=== PATIENT | male | born 1945 | race Caucasian/White ===

== ENCOUNTER 2020-08-19 02:01 | Outpatient (CLI) | payer MEDICARE, OTHER, SELFPAY ==
[2020-08-19 19:10] LABS: SARS-CoV-2 RNA PCR Negative
== END 2020-08-19 02:02 | disposition home or self-care (01) ==
LOC: ANHCOVIDDT 02:02
PROVIDERS: PCP Internal Medicine; Visit Provider Orthopaedic Surgery
DX: Z01.812 Encounter for preprocedural laboratory examination (principal); Z20.828 Contact with and (suspected) exposure to other viral communicable diseases
CPT/HCPCS: 87635; C9803; U0003

== ENCOUNTER 2020-08-22 00:58 | Day surgery (SDC) | payer MEDICARE, OTHER, SELFPAY ==
[2020-08-17 18:02] VITALS: BMI 27.8
--- NOTE | 2020-08-22 07:05 | WPDHPUPDATE1 ---
History and Physical Update Update Date/Time: 08/22/20 07:05 History and Physical has been reviewed, including an updated exam of the patient. There are NO changes in the patient's condition. Risks, benefits, and alternatives have been discussed and questions answered. Patient agrees to proceed with procedure.
--- NOTE | 2020-08-22 07:31 | WPDANESEPPF ---
Anes - Initial Pre Proc Eval Procedure: Operation Date: 08/22/20 08:30 Proposed Procedures p Right Fourth Trigger Finger Release - Ede Jain MD Date/Time: 08/22/20 07:31 Surgeon: Ede Jani MD Pre Op Diagnosis: right 4th trigger finger Patient Data Age: 75 Gender: M Height: 6 ft Weight: 93 kg Allergies Allergy/AdvReac Type Severity Reaction Status Date / Time iodine Allergy Severe HIVES Verified 11/14/09 09:43 Contrast Media Allergy Severe HIVES Uncoded 11/14/09 09:43 Home Medications Medication Instructions Recorded Confirmed Type atorvastatin 10 mg tablet 10 mg PO DAILY 06/16/20 08/17/20 History paroxetine HCl 20 mg tablet 20 mg PO DAILY 06/16/20 08/17/20 History zolpidem 5 mg tablet 5 mg PO ONCE PRN 06/16/20 08/17/20 History Patient hx anesthesia problems: none Family hx anesthesia problems: none PMFSH Past Medical History Medical History (Updated 08/22/20 @ 07:26 by Dilip Neves MD) BMI 27.0-27.9,adult Hyperlipidemia Osteoporosis Prostate cancer Trigger finger, right ring finger Surgical History Surgical History History of prostate surgery (~2009) Family History Family History Mother Heart disease Father Heart disease Social History Social History Smoking status: Never smoker Alcohol intake: current Substance use: never Living arrangements: with family Gender identity (if verbalized by the patient): Male Sexual Orientation (if Verbalized by the Patient): Straight or Heterosexual Spiritual care concerns: No Anes - Eval Final PreProcedure Day of Procedure 08/22/20 07:31 Patient weight: overweight Heart: regular rate and rhythm Lungs: clear to auscultation Airway: Mallampati scale class II Neurological: alert and oriented Last oral intake: >/= 8 hours ASA classification: III Anesthetic plan: proceed Anesthesia type and monitoring: general GIVS and standard monitoring Informed Consent: The patient's anesthetic plan and its attendant risks and benefits were discussed with the patient/family/POA. Questions were solicited and answers provided to the satisfaction of the patient/family/POA.
[2020-08-22] MEDS: ACETAMINOPHEN 500 MG TABLET 1000 MG PO (07:36)
[2020-08-22] MEDS: LACTATED RINGERS 1,000 ML 30 ML IV CONT (07:49)
[2020-08-22] MEDS: KETOROLAC 15 MG/ML VIAL (*BKC) IV PUSH (07:50)
[2020-08-22 08:00] VITALS: BP 144/78; PULSE 63; RESP 16; TEMP 35.7; O2SAT 99
[2020-08-22] MEDS: ceFAZolin 2 GM/D5W 50 ML 2 GM/50 ML BAG IVPB (08:05)
[2020-08-22 08:36] VITALS: BP 86/58; PULSE 57; RESP 12; O2SAT 93
--- NOTE | 2020-08-22 08:46 | PM.PROC ---
Procedure Note - Detailed Date of procedure: 08/22/20 Pre-op diagnosis: right 4th trigger finger Post-op diagnosis: same Procedure performed: The patient was identified and proper site identified. He was taken to the operating room and transferred to the OR table placing supine taking care to pad the torso and extremities. IV sedation was administered. A nonsterile tourniquet was placed high on the right arm which was prepped and draped in the usual sterile fashion. Several cc of .25 % plain Marcaine was injected into the subcutaneous tissue over the A1 tino of the right third digit. The extremity was exsanguinated and the tourniquet was inflated to 250 mmHg remaining up for about five minutes. A longitudinal incision was made over the A1 tino. Subcutaneous tissue was bluntly dissected down to the tino while protecting the neurovascular bundles. The A1 tino was identified and then transected longitudinally in line with the incision and tendons. The tendons were delivered into the wound verifying the adequacy of the release. Hemostasis was carried out. The wound was irrigated with sterile saline. Skin edges were reapproximated with 4-0 nylon suture. Sterile dressing was applied. Tourniquet was released. He tolerated the procedure well and was transferred back to a cart, then taken to the recovery area in stable condition. There were no known intraoperative complications. Estimated blood loss was negligible. Perioperative antibiotics were administered. Anesthesia: MAC and local Surgeon: Ede Jain MD Estimated blood loss (mL): 1 Tourniquet time (min): 5 Drains: No Packing: No Pathology: none sent Complications: No immediate complications Condition: stable Disposition: PACU
[2020-08-22 09:06] VITALS: BP 106/75; PULSE 62; RESP 12; O2SAT 93
[2020-08-22 09:36] VITALS: BP 122/74; PULSE 61; RESP 12
== END 2020-08-22 09:50 | disposition home or self-care (01) ==
PROVIDERS: PCP Internal Medicine; Visit Provider Orthopaedic Surgery
PROC: (CPT 26055; principal; 2020-08-22 08:30)
DX: M65.341 Trigger finger, right ring finger (principal); E78.5 Hyperlipidemia, unspecified; M81.0 Age-related osteoporosis without current pathological fracture; Z85.46 Personal history of malignant neoplasm of prostate
CPT/HCPCS: 26055; A9270; J0690; J1885; J2405; J2704; J3010; J7120